=== PATIENT | female | born 1960 | race Caucasian/White ===

== ENCOUNTER 2024-07-16 11:00 | Outpatient (AMB) | payer BC, SELFPAY ==
--- NOTE | 2024-07-16 11:13 | MHC.OFFVIS ---
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 Patient reports she was at the dentist's office 2 weeks ago and while sitting in the dentist chair she was asked to lean forward when sudden excruciating pain was felt in her lower back on the left side. Patient is suffering daily from chronic low back and multiple joint pain due RA but states recent exacerbation of low back pain has been significant. Back pain is localized to the lower spine and extends to the left buttock and lateral left hip with intermittent radiation into the left groin and left posterior extremity. She has increase left-sided low back pain with standing on her left heel. Reports associated burning, intermittent numbness and tingling in her left thigh and weakness. 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 Pain affects her daily activities and functioning, sleep, mood, work, and social interactions. Denies previous spine injections or surgery. Patient moved from [place] 4 years ago and lives in multi-family home with her daughter who is very supportive to her. Patient reports her 8 years ago. Patient denies recent physical therapy or chiropractic manipulation. Due to significant low back pain she is not able to participate in PT and reports taking multiple sick days from work due to pain. Denies seeing counseling in past or currently for depression and chronic pain syndrome. Reports good social support system at home. Pain prevents patient from traveling or enjoying recreational or social events. Patient states she uses cane or walker at home in the mornings and late in evenings when the pain is most severe and rated at 10/10. Denies any fever or chills, abdominal pain, bladder or bowel dysfunction or saddle anesthesia. Oswestry Low Back Disability Score=20 (moderate disability) Location: Lower back pain radiates to left buttock and lateral hip Duration: Chronic pain >20+ years due to RA and low back pain Characteristics of symptom or complaint: Thobbing, aching, radiating, shooting, burning, numbness, heavy Aggravating or associated factors: Standing for long periods of times, movements, bending, lifting, pulling Relieving factors: Heating pad, BenGay, Tylenol, daily prednisone (RA), NSAIDs, Flexeril Treatment: Medical management, activity modifications, time off from work [facility] Medical History (Updated 07/16/24 @ 13:15 by HELENA Ruano) Polyarthralgia Sacroiliac joint pain Lumbosacral spondylosis Seropositive rheumatoid arthritis Acute left-sided low back pain without sciatica Review of Systems Const All systems reviewed & are unremarkable except as noted in HPI and below Physical Exam Vital Signs: Last Vital Signs Pulse 52 07/16/24 11:18 BP 158/81 H 07/16/24 11:18 Pulse Ox 97 07/16/24 11:18 Oxygen Delivery Method Room Air 07/16/24 11:18 BMI result Body Mass Index 35.5 General: Appears afebrile. Moderate distress due to pain. Alert and oriented. Mood and affect appropriate. Follows and participates in conversation appropriately. Respiratory effort is unlabored. No cough. Able to transition from sit to stand unassisted. Ambulates with bilaterally normal heel strike and toe off, increased left low back pain with heel standing on the left. General: Yes no CVA tenderness Back/Spine/Pelvis Other: Lumbar ROM limited due to pain. Antalgic gait with mild limping, favoring right leg. Lumbar extension, axial rotations and flexion forward reproduce moderate-severe pain. Demonstrates 5/5 right and 4/5 left strength of quadriceps bilaterally as well as flexion/dorsiflexion of bilateral feet against resistance. 2+ pedal pulses bilaterally. Straight leg rise with dorsiflexion positive on the left. +1 patellar and achilles reflexes bilaterally. Facet loading test positive bilaterally. Dilan sign, Hany?s, Gaenslen, Pelvic compression and Stinchfield tests are positive bilaterally, worse on the left. Moderate groin pain with I/E left hip rotations. Mild TTP to left GTB. Valsalva maneuver negative. Back: no CVA tenderness Cervical Spine: cervical muscular tenderness and No Cervical spine tenderness Thoracic/Lumbar Spine: thoracic and lumbar spine normal to inspection, No Thoracic/lumbar spine scar(s), Lasegue's sign positive on the left and localized, pain with thoraco-lumbar ROM, paraspinal muscle tenderness, thoraco-lumbar ROM limited, No thoracic spinal tenderness and lumbar spinal tenderness (L4-S1) Pelvis: buttock tenderness on the left and sciatic notch tenderness on the left Sacroiliac joints: bilaterally tender to palpation Quality Reporting (2020) Depression/Bipolar (159/160/161/177) PHQ-9: Total score: 17 Results Reviewed Results Reviewed: No imaging results are available for review. Assessment & Plan Assessment & Plan (1) Sacroiliac joint pain: Code(s): M53.3 - Sacrococcygeal disorders, not elsewhere classified Category: Medical (2) Lumbosacral spondylosis: Code(s): M47.817 - Spondylosis without myelopathy or radiculopathy, lumbosacral region Category: Medical (3) Left hip pain: Code(s): M25.552 - Pain in left hip Category: Medical (4) Seropositive rheumatoid arthritis: Code(s): M05.9 - Rheumatoid arthritis with rheumatoid factor, unspecified Category: Medical (5) Lumbar radiculopathy: Code(s): M54.16 - Radiculopathy, lumbar region Category: Medical Plan Patient presents with multifactorial low back pain, including axial and discogenic with radicular symptoms on the left, sacroiliac joint pain and left hip pain. We will request most recent spine and joint imaging from [facility] and [facility] as well as obtain MRI of the lumbar? spine to assess for neural integrity and compression. Due to significant pain, patient is not able to participate in physical therapy or home exercise program. She has taking significant time off from work for the past 2 weeks due to pain. On evaluation, it was determined that there was a continued need to continued palliative chronic opioid prescribing. Risks and benefits were discussed with the patient. She believes she was more functional and less symptomatic on chronic opioids in the past. [facility] reviewed and consistent with patient's history. Patient agreed to have the UDS performed immediately after this appointment. She is aware that this office can not prescribe until the UDS is reviewed and contracts are signed. Patient is scheduled for teeth extraction next week for dentures plan in the near future. All questions were answered and she is agreeable to the plan. Follow up in 2 weeks for UDS/MRI review and sooner as needed. Orders: Orders MR lumbar spine wo con Today M05.9 - Rheumatoid arthritis with rheumatoid factor, unspecified, M25.552 - Pain in left hip, M47.817 - Spondylosis without myelopathy or radiculopathy, lumbosacral region, M53.3 - Sacrococcygeal disorders, not elsewhere classified, M54.16 - Radiculopathy, lumbar region Coding Level of Care Code New Pt Level 4 (05569) Complex EM visit Add On G2211 Diagnoses Sacroiliac joint pain M53.3 Lumbosacral spondylosis M47.817 Left hip pain M25.552 Seropositive rheumatoid arthritis M05.9 Lumbar radiculopathy M54.16 PHQ-9 Over the last 2 weeks, how often have you been bothered by any of the following problems? 1. Little interest or pleasure in doing things: nearly every day 2. Feeling down, depressed, or hopeless: more than half the days 3. Trouble falling or staying asleep, or sleeping too much: more than half the days 4. Feeling tired or having little energy: nearly every day 5. Poor appetite or overeating: nearly every day 6. Feeling bad about yourself - or that you are a failure or have let yourself or your family down: more than half the days 7. Trouble concentrating on things, such as reading the newspaper or watching television: more than half the days 8. Moving or speaking so slowly that other people could have noticed. Or the opposite - being so fidgety or restless that you have been moving around a lot more than usual: not at all 9. Thoughts that you would be better off or of hurting yourself in some way: not at all Total score: 17 Depression Screening Interpretation: Positive Depression Screening Follow-up: Follow-up Visit Requested Depression Screening Done: Yes 63318 - PHQ-9 Billing: Yes Source: Developed by Drs. Obi L. Leni Castle Kurt Kroenke and colleagues, with an educational jorge from [employer]
[2024-07-16 11:18] VITALS: BP 158/81; PULSE 52; O2SAT 97; BMI 35.5
== END 2024-07-16 12:10 | disposition home or self-care (01) ==
PROVIDERS: PCP Nurse Practitioner Family; Referring Provider Nurse Practitioner Family; Visit Provider Nurse Practitioner Family
DX: M53.3 Sacrococcygeal disorders, not elsewhere classified (principal); M47.817 Spondylosis without myelopathy or radiculopathy, lumbosacral region; M25.552 Pain in left hip; M05.9 Rheumatoid arthritis with rheumatoid factor, unspecified; M54.16 Radiculopathy, lumbar region
CPT/HCPCS: 99204

== ENCOUNTER → 2024-07-16 11:00 | Outpatient (BNVA) | payer BC, SELFPAY | PROVIDERS: PCP Nurse Practitioner Family; Referring Provider Nurse Practitioner Family; Visit Provider Nurse Practitioner Family ==